=== PATIENT | male | born 1940 | race Caucasian/White ===

== ENCOUNTER 2018-12-07 06:29 | Day surgery (SDC) | payer MEDICARE ==
[~2018-12-07 06:29] MED LIST: Lactated Ringers 1,000 ML IV SCH
[2018-12-07] MEDS ORDERED: fentaNYL 100 MCG/2 ML SDV ONE (07:27)
[2018-12-07] MEDS ORDERED: Midazolam 1 MG/ML 2 ML SDV ONE (07:27)
[2018-12-07] MEDS ORDERED: Propofol 200 MG/20 ML SDV ONE (07:28)
[2018-12-07 10:33] VITALS: BP 147/90; PULSE 65
--- NOTE | 2018-12-07 12:46 | OR ---
DATE OF PROCEDURE: 12/07/2018 SURGEON: Stephen Ham MD PREOPERATIVE DIAGNOSIS: Strong family history of colon cancer, mother had colon cancer. POSTOPERATIVE DIAGNOSES: Strong family history of colon cancer, mother had colon cancer. Small polyp 15 cm from the anal verge. PROCEDURE: Colonoscopy to the cecum with biopsy resection of small polyp 15 cm from the anal verge. ANESTHESIA: IV anesthesia with monitored anesthesia care. INDICATION: This 78-year-old white male is referred for a colonoscopy because of a strong family history of colon cancer. His mother had colon cancer. He says his last colonoscopic exam was done about 6 years ago. I counseled him for the procedure, including risks and alternatives, and gave his informed consent to proceed. DESCRIPTION OF PROCEDURE: The patient was placed in the left lateral decubitus position. IV anesthesia was administered by the Anesthesia Service. Time-out was held. A rectal exam was performed, which was unremarkable. The flexible video Olympus colonoscope was introduced through his anus, up his rectum, and out his colon all the way to the cecum. Once the cecum was reached, the scope was slowly withdrawn, examining the mucosa throughout. No mucosal abnormalities were noted until we reached 15 cm from the anal verge. Here, we saw a small polyp, which was removed with a couple of bites of the biopsy forceps. The scope was brought back into the rectum, where it was retroflexed. The distal rectum appeared unremarkable. The scope was straightened and removed. He tolerated the procedure well. Stephen Ham MD /[id number]
== END 2018-12-07 09:30 | disposition home or self-care (01) ==
LOC: JP.SDS 06:29
PROVIDERS: ATTEND Surgery
DX: Z12.11 Encounter for screening for malignant neoplasm of colon (principal); K63.5 Polyp of colon; I12.9 Hypertensive chronic kidney disease with stage 1 through stage 4 chronic kidney disease, or unspecified chronic kidney disease; N18.3 Chronic kidney disease, stage 3 (moderate); E66.9 Obesity, unspecified; K21.9 Gastro-esophageal reflux disease without esophagitis; Z80.0 Family history of malignant neoplasm of digestive organs; Z68.32 Body mass index [BMI] 32.0-32.9, adult
CPT/HCPCS: 45380; J2250; J2704; J3010; J7120; 88305

== ENCOUNTER 2024-11-20 01:54 | Emergency (ER) | payer OTHER ==
[2024-11-20 02:12] LABS: BASOPHILS ABSOLUTE AUTO 0.06 K/uL (0.00-0.10); BASOPHILS PERCENT AUTO 0.9 % (0.1-1.3); EOSINOPHILS ABSOLUTE AUTO 0.38 K/uL (0.00-0.40); EOSINOPHILS PERCENT AUTO 5.5 % (0.0-5.4); IMMATURE GRAN PERCENT AUTO 0.1 % (0.0-0.7); LYMPHOCYTES ABSOLUTE AUTO 2.68 K/uL (0.8-3.3); LYMPHOCYTES PERCENT AUTO 38.9 % (11.4-47.7); MONOCYTES ABSOLUTE AUTO 0.87 K/uL (0.20-0.90); MONOCYTES PERCENT AUTO 12.6 % (3.3-12.6); NEUTROPHILS ABSOLUTE AUTO 2.89 K/uL (1.0-7.6); NEUTROPHILS PERCENT AUTO 42.0 % (40.0-78.1); PLATELET COUNT,PLT 232 K/uL (130-375); RED BLOOD CELL COUNT 5.51 M/uL (4.14-5.76); WHITE BLOOD CELL COUNT,WBC 6.9 K/uL (3.2-11.0)
[2024-11-20 02:14] VITALS: PULSE 80
[2024-11-20 02:16] LABS: IMMATURE GRAN ABSOLUTE AUTO 0.01 K/uL (0.00-0.23)
[2024-11-20 02:24] LABS: A/G RATIO 0.9 (1.2-2.2); ALANINE AMINOTRANSFERASE,ALT 60 U/L (12-78); ASPARTATE AMNIOTRANSFERASE,AST 104 U/L (15-37); BILIRUBIN TOTAL 0.6 mg/dL (0.2-1.0); BLOOD UREA NITROGEN,BUN 21 mg/dL (7-18); CARBON DIOXIDE,CO2 30 mmol/L (21-32); CHLORIDE,CL 101 mmol/L (100-108); CREATININE 1.3 mg/dL (0.8-1.3); EST CRCL DRUG DOSING (CG) 48.09 mL/min; ESTIMATED GFR 55 mL/min (>60); GLUCOSE RANDOM 108 mg/dL (74-106); POTASSIUM,K 3.5 mmol/L (3.6-5.2); PROTEIN TOTAL,TP 8.0 g/dL (6.4-8.2); SODIUM,NA 139 mmol/L (140-148); TROPONIN I HIGH SENSITIVITY 8.4 pg/mL (<=60.3)
[2024-11-20 03:11] VITALS: BP 157/81
== END 2024-11-20 03:30 | disposition home or self-care (01) ==
LOC: JP.ED 01:54
DX: R07.89 Other chest pain (principal); I10 Essential (primary) hypertension; E66.9 Obesity, unspecified; Z79.899 Other long term (current) drug therapy; Z90.49 Acquired absence of other specified parts of digestive tract; Z68.32 Body mass index [BMI] 32.0-32.9, adult
CPT/HCPCS: 36415; 71045; 80053; 84484; 85025; 93005; 94640; 99285; J7620; A9270-GY